=== PATIENT | female | born 1980 | race Caucasian/White ===

== ENCOUNTER 2016-05-29 08:48 | Day surgery (SDC) | payer OTHER ==
[2016-05-21 15:06] LABS: BASOPHILS 0.1 %; BASOPHILS ABSOLUTE 0.02 10/3/uL (0.0-0.16); EOSINOPHILS 0.9 %; EOSINOPHILS ABSOLUTE 0.12 10/3/uL (0.0-0.53); HEMOGLOBIN 15.5 g/dL (12.0-16.0); IMMATURE GRANULOCYTES 0.2 %; IMMATURE GRANULOCYTES ABSOLUTE 0.03 10/3/uL (0.0-0.11); LYMPHOCYTES 29.1 %; LYMPHOCYTES ABSOLUTE 4.07 10/3/uL (0.67-4.30); MEAN CORPUS HGB CONC 33.6 g/dL (32.0-36.0); MEAN CORPUSCULAR HEMOGLOB 29.9 pg (26.0-34.0); MEAN PLATELET VOLUME 10.8 fL (9.2-13.0); MONOCYTES 4.4 %; MONOCYTES ABSOLUTE 0.62 10/3/uL (0.21-1.20); NEUTROPHILS 65.3 %; NEUTROPHILS ABSOLUTE 9.15 10/3/uL (2.02-8.40); PLATELET COUNT 377 10/3/uL (150-400); RBC DISTRIBUTION WIDTH 13.4 % (12.0-16.0); RED CELL COUNT 5.18 10/6/uL (4.0-5.6)
[2016-05-21 15:07] LABS: HEMATOCRIT 46.1 % (36.0-48.0); MANUAL DIFF NO %
[2016-05-21 15:15] LABS: BUN (BLOOD UREA NITROGEN) 12 MG/DL (6-23); CALCIUM, SERUM 9.1 MG/DL (8.5-10.4); CHLORIDE, SERUM 103 MMOL/L (96-112); CO2 (CARBON DIOXIDE) 25 MMOL/L (24-34); GFR AFRICAN AMERICAN 112 ML/MIN (>=60); GFR NON AFRICAN AMERICAN 97 ML/MIN (>=60); GLUCOSE, SERUM 91 MG/DL (60-99); POTASSIUM, SERUM 4.5 MMOL/L (3.5-5.3); SODIUM, SERUM 138 MMOL/L (135-148)
--- NOTE | ~2016-05-29 | OP ---
Record Of Operation [facility] [address] [place]. [address] NAME: DIMITRY MARIA : 84 STATUS : REG [facility] PAT#: [id number] AGE: 35 ADM/REG DATE : 05/29/16 MR#: [id number] REPORT SERV DATE: 05/29/16 DICTATED BY: YO ARAIZA DATE: 05/29/16 REPORT STATUS : Draft TRANSCRIBED BY: NETTA DATE: 05/29/16 DATE OF PROCEDURE: 05/29/2016 SERVICE: Otolaryngology. PREOPERATIVE DIAGNOSIS: Acquired nasal deformity. POSTOPERATIVE DIAGNOSIS: Acquired nasal deformity. PROCEDURES: 1. Repair of vestibular stenosis. 2. Septoplasty. 3. Bilateral inferior turbinoplasty with outfracture. 4. [place] of septal cartilage for use as a graft in the nose. ANESTHESIA: General endotracheal anesthesia. COMPLICATIONS: None. SPECIMENS: Nasal bone and cartilage. 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 STATEMENT OF MEDICAL NECESSITY: This is a 35-year-old female with multiple traumas to the nose and nasal airway obstruction. She had the above described mechanical areas of obstruction. I recommended the above surgery for repair. STATEMENT OF OPERATION: The patient was brought to the operating room in supine position, transferred over to the operating table. All pressure points were padded and general endotracheal anesthesia was established. The patient's nose hairs were trimmed with a small scissors. 1% lidocaine with epinephrine was injected into the skin and soft tissue envelope and the septal flaps bilaterally. 4% cocaine-soaked pledgets were placed bilaterally. The patient was then prepped and draped in usual fashion. The pledgets were removed. The transcolumellar incision was marked out in an inverted V fashion with a marking pen. Bilateral marginal incisions were then made with a 15 blade followed by transcolumellar incision, which was made with 11 blade. The transcolumellar skin was elevated in the submuscular plane and connected to the marginal incisions bilaterally. The skin and soft tissue envelope was then elevated completely to expose the bony nasal dorsum and upper and lower lateral cartilages. The periosteum from the bony nasal dorsum was then elevated using a Conner elevator. The anterior septal angle was then developed with a 15 blade. Bilateral septal flaps were created in the subperichondrial and subperiosteal planes. The upper lateral cartilages were divided sharply from the dorsal septal cartilage with a 15 blade. Next, the prominent portion of the dorsal septal cartilage was trimmed down with a 15 blade. I also used an osteotome to remove a small bony hump and rasped the edges down till they were smooth. I then the bony cartilaginous junction of the septum with double- Record Of Operation [address] [place]. [address] NAME: DIMITRY MARIA : 84 STATUS : REG [facility] PAT#: [id number] AGE: 35 ADM/REG DATE : 05/29/16 MR#: [id number] REPORT SERV DATE: 05/29/16 DICTATED BY: YO ARAIZA DATE: 05/29/16 REPORT STATUS : Draft TRANSCRIBED BY: NETTA DATE: 05/29/16 action scissors and made superior and inferior cuts to remove the twisted and deformed portion of the bony septal cartilage. I then removed the portion of deviated quadrangular cartilage. I took it back to the back table. I harvested two pipe straightener grafts and one columellar strut graft and used to 15 knife to fashion these. The pipe straightener grafts were then placed between the dorsal septal cartilage and the upper lateral cartilages. They were secured with three horizontal mattress sutures using 5-0 PDS. A soft tissue pocket was then created between the medial crura of the lower lateral cartilage. With the medical receptionist assistant holding the tips in appropriate projection and rotation, the transcolumellar suture was performed with 5-0 PDS incorporating both medial crura and the columellar strut graft. The patient's skin and soft tissue was then redraped. The profile was improved. There was good symmetry. At this point, I injected both inferior turbinates with 1% lidocaine with epinephrine. I reduced them submucosally with a microdebrider and then outfractured them with a Boies elevator. The transcolumellar incision was then closed with interrupted 6-0 fast absorbing gut sutures followed by the internal nasal incisions, which were closed with interrupted 4-0 chromic gut sutures. Vasquez splints coated in bacitracin were then applied to each side of the nose and secured to the anterior septum with a 2-0 nylon suture. The skin and the face were then cleansed with warm saline and dried. Mastisol solution was applied to the dorsum followed by modified Steri-Strips and an Aquaplast splint. This concluded the case. The patient was turned over to Anesthesia, where she awoke, was extubated, and transferred to the PACU in stable condition. RITO/MODL Yo Araiza MD / [id number] CC: MD Je Curry M.D.
[~2016-05-29 08:48] MED LIST: ALEVE220 MG PO; TUMSROLL PO
== END 2016-05-29 23:59 | disposition home or self-care (01) ==
LOC: MSC 08:48
PROVIDERS: Otolaryngology
PROC: 09SM0ZZ Reposition Nasal Septum, Open Approach (ICD-10-PCS; principal; 2016-05-29 10:30)
PROC: 09SL7ZZ Reposition Nasal Turbinate, Via Natural or Artificial Opening (ICD-10-PCS; 2016-05-29 10:30)
DX: M95.0 Acquired deformity of nose (principal); J34.2 Deviated nasal septum; F41.9 Anxiety disorder, unspecified; F17.200 Nicotine dependence, unspecified, uncomplicated; Z88.5 Allergy status to narcotic agent; Z91.048 Other nonmedicinal substance allergy status; G43.909 Migraine, unspecified, not intractable, without status migrainosus; K44.9 Diaphragmatic hernia without obstruction or gangrene; Z98.51 Tubal ligation status; Z98.890 Other specified postprocedural states
CPT/HCPCS: 80048; 84703; 85025; 88300; 93005; A9270-GY; J0690; J0735; J2250; J2270; J2405; J2550; J3010

== ENCOUNTER 2016-05-31 19:35 | Emergency (ER) | payer OTHER ==
[2016-05-31 20:20] LABS: BASOPHILS 0.1 %; BASOPHILS ABSOLUTE 0.03 10/3/uL (0.0-0.16); EOSINOPHILS 0.1 %; EOSINOPHILS ABSOLUTE 0.02 10/3/uL (0.0-0.53); HEMATOCRIT 46.2 % (36.0-48.0); HEMOGLOBIN 15.8 g/dL (12.0-16.0); IMMATURE GRANULOCYTES 0.4 %; IMMATURE GRANULOCYTES ABSOLUTE 0.08 10/3/uL (0.0-0.11); MEAN CORPUS HGB CONC 34.2 g/dL (32.0-36.0); MEAN CORPUSCULAR HEMOGLOB 30.8 pg (26.0-34.0); MEAN CORPUSCULAR VOLUME 90.1 fL (80-100); MEAN PLATELET VOLUME 10.3 fL (9.2-13.0); MONOCYTES 4.5 %; MONOCYTES ABSOLUTE 0.95 10/3/uL (0.21-1.20); NEUTROPHILS 84.9 %; NEUTROPHILS ABSOLUTE 17.79 10/3/uL (2.02-8.40); PLATELET COUNT 375 10/3/uL (150-400); RBC DISTRIBUTION WIDTH 13.3 % (12.0-16.0); RED CELL COUNT 5.13 10/6/uL (4.0-5.6)
[2016-05-31 20:21] LABS: ER CBC TAT 0 Hrs 07 Mins; MANUAL DIFF NO %
[2016-05-31 20:36] LABS: A/G RATIO 1.2 (0.7-1.9); ALBUMIN 4.5 G/DL (3.5-5.0); ALKALINE PHOSPHATASE 91 U/L (45-117); BUN (BLOOD UREA NITROGEN) 8 MG/DL (6-23); CHLORIDE, SERUM 101 MMOL/L (96-112); CO2 (CARBON DIOXIDE) 27 MMOL/L (24-34); CREATININE 0.92 MG/DL (0.55-1.02); GFR AFRICAN AMERICAN 95 ML/MIN (>=60); GFR NON AFRICAN AMERICAN 82 ML/MIN (>=60); GLOBULIN 3.7 G/DL (2.5-4.1); GLUCOSE, SERUM 132 MG/DL (60-99); POTASSIUM, SERUM 3.5 MMOL/L (3.5-5.3); SGOT(AST) 10 U/L (5-40); SGPT(ALT) 20 U/L (5-65); SODIUM, SERUM 138 MMOL/L (135-148); TOTAL BILIRUBIN 0.7 MG/DL (0-1.2); TOTAL PROTEIN 8.2 G/DL (6.0-8.5)
[2016-05-31 21:43] LABS: WBC (NOT ORDERED) (RFLEX) 0 (0-5)
[2016-05-31 22:02] LABS: ASCORBIC ACID (UR NOT ORDER) NEG (NEG); BILIRUBIN, URINE NEGATIVE (NEG); ER URINALYSIS TAT 0 Hrs 20 Mins; KETONE, URINE TRACE MG/DL (NEG); LEUKOCYTE ESTERASE(NOT OR NEG (NEG); NITRITE (URINE) NEG (NEG)
[2016-05-31 22:09] LABS: LACTATE 1.7 MMOL/L (0.3-2.4)
[2016-05-31 22:26] LABS: PROCALCITONIN <0.05 ng/mL (<0.5)
== END 2016-05-31 22:47 | disposition home or self-care (01) ==
LOC: ER 19:35
PROVIDERS: Emergency Medicine
DX: R11.2 Nausea with vomiting, unspecified (principal); R19.7 Diarrhea, unspecified; K21.9 Gastro-esophageal reflux disease without esophagitis; F31.9 Bipolar disorder, unspecified; F41.9 Anxiety disorder, unspecified; F17.200 Nicotine dependence, unspecified, uncomplicated; Z88.8 Allergy status to other drugs, medicaments and biological substances; Z79.899 Other long term (current) drug therapy
CPT/HCPCS: 71010; 80053; 81001; 83605; 84145; 84703; 85025; 87040; 96374; 96375; 99284; J1170; J2550

== ENCOUNTER 2016-07-07 13:23 | Emergency (ER) | payer OTHER ==
[2016-07-07 14:14] LABS: BASOPHILS 0.1 %; BASOPHILS ABSOLUTE 0.01 10/3/uL (0.0-0.16); EOSINOPHILS 0 %; ER CBC TAT 0 Hrs 05 Mins; HEMATOCRIT 43.1 % (36.0-48.0); HEMOGLOBIN 14.8 g/dL (12.0-16.0); IMMATURE GRANULOCYTES 0.2 %; IMMATURE GRANULOCYTES ABSOLUTE 0.04 10/3/uL (0.0-0.11); LYMPHOCYTES 13.1 %; LYMPHOCYTES ABSOLUTE 2.15 10/3/uL (0.67-4.30); MEAN CORPUS HGB CONC 34.3 g/dL (32.0-36.0); MEAN CORPUSCULAR HEMOGLOB 30.1 pg (26.0-34.0); MEAN CORPUSCULAR VOLUME 87.6 fL (80-100); MEAN PLATELET VOLUME 9.7 fL (9.2-13.0); MONOCYTES 2.1 %; MONOCYTES ABSOLUTE 0.34 10/3/uL (0.21-1.20); NEUTROPHILS 84.5 %; NEUTROPHILS ABSOLUTE 13.92 10/3/uL (2.02-8.40); PLATELET COUNT 356 10/3/uL (150-400); RBC DISTRIBUTION WIDTH 13.4 % (12.0-16.0); RED CELL COUNT 4.92 10/6/uL (4.0-5.6); WHITE BLOOD CELLS 16.5 10/3/uL (4.5-10.5)
[2016-07-07 14:15] LABS: MANUAL DIFF NO %
[2016-07-07 14:30] LABS: A/G RATIO 1.2 (0.7-1.9); ALBUMIN 3.7 G/DL (3.5-5.0); ALKALINE PHOSPHATASE 87 U/L (45-117); BUN (BLOOD UREA NITROGEN) 7 MG/DL (6-23); CALCIUM, SERUM 8.9 MG/DL (8.5-10.4); CHLORIDE, SERUM 107 MMOL/L (96-112); CO2 (CARBON DIOXIDE) 23 MMOL/L (24-34); CREATININE 0.67 MG/DL (0.55-1.02); GFR AFRICAN AMERICAN 134 ML/MIN (>=60); GFR NON AFRICAN AMERICAN 115 ML/MIN (>=60); GLOBULIN 3.1 G/DL (2.5-4.1); GLUCOSE, SERUM 110 MG/DL (60-99); POTASSIUM, SERUM 3.4 MMOL/L (3.5-5.3); SGOT(AST) 20 U/L (5-40); SGPT(ALT) 22 U/L (5-65); SODIUM, SERUM 139 MMOL/L (135-148); TOTAL BILIRUBIN 0.8 MG/DL (0-1.2); TOTAL PROTEIN 6.8 G/DL (6.0-8.5)
[2016-07-07 15:10] LABS: ASCORBIC ACID (UR NOT ORDER) NEG (NEG); BILIRUBIN, URINE NEGATIVE (NEG); ER URINALYSIS TAT 0 Hrs 09 Mins; KETONE, URINE TRACE MG/DL (NEG); LEUKOCYTE ESTERASE(NOT OR NEG (NEG); NITRITE (URINE) NEG (NEG); WBC (NOT ORDERED) (RFLEX) 1 (0-5)
== END 2016-07-07 16:26 | disposition home or self-care (01) ==
LOC: ER 13:23
PROVIDERS: Nurse Practitioner Acute Care
DX: R10.31 Right lower quadrant pain (principal); R19.7 Diarrhea, unspecified; R11.2 Nausea with vomiting, unspecified; E87.6 Hypokalemia; F17.200 Nicotine dependence, unspecified, uncomplicated; K21.9 Gastro-esophageal reflux disease without esophagitis; Z88.5 Allergy status to narcotic agent; Z91.048 Other nonmedicinal substance allergy status; Z79.899 Other long term (current) drug therapy
CPT/HCPCS: 74176; 80053; 81001; 83690; 84703; 85025; 96374; 96375; 99284; J1170; J2405